=== PATIENT | female | born 1995 | race Caucasian/White ===

== ENCOUNTER 2025-01-23 22:34 | Emergency (ER) | payer BC ==
[~2025-01-23] VITALS: Wt 90.1 kg
[2025-01-23 22:55] LABS: BASO # 0.02 K/mm3 (0.02-0.10); EOS # 0.09 K/mm3 (0.04-0.40); HEMATOCRIT 35.2 % (37.0-47.0); HEMOGLOBIN 11.8 g/dL (12.5-16.0); LYMPH# 1.88 K/mm3 (1.50-4.00); MEAN CELL VOLUME 99 fl (78-100); MEAN CORPUSCULAR HEMOGLOBIN 33 pg (27-31); MEAN CORPUSCULAR HGB CONC 34 g/dL (33-37); MEAN PLATELET VOLUME 10.2 fl (7.4-10.4); MONO # 0.77 K/mm3 (0.20-0.80); NEU # 6.44 K/mm3 (1.40-6.50); PLATELET COUNT 286 K/mm3 (130-400); RED BLOOD COUNT 3.57 M/mm3 (4.10-5.30); RED CELL DISTRIBUTION WIDTH 12.5 % (11.5-14.5); WHITE BLOOD COUNT 9.3 K/mm3 (4.8-10.8)
[2025-01-23 23:00] LABS: ALBUMIN 3.4 g/dL (3.5-5.0)
[2025-01-23 23:01] LABS: CALCIUM 9.5 mg/dL (8.3-10.5)
[2025-01-23 23:03] LABS: TOTAL PROTEIN 7.2 g/dL (6.4-8.3)
[2025-01-23 23:04] LABS: TOTAL BILIRUBIN 0.3 mg/dL (0.2-1.2)
[2025-01-23] MEDS ORDERED: CEPHALEXIN500 M1 PO (23:15)
[2025-01-23] MEDS ORDERED: LEVOTHYROXINE125 MCG PO (23:15)
[2025-01-23] MEDS ORDERED: VITAMIN D3250 MCG PO (23:16)
[2025-01-23 23:37] VITALS: BP 120/75
== END 2025-01-23 23:40 | disposition home or self-care (01) ==
LOC: ED 22:34
PROVIDERS: Family Medicine
DX: O99.513 Diseases of the respiratory system complicating pregnancy, third trimester (principal); J06.9 Acute upper respiratory infection, unspecified; Z3A.38 38 weeks gestation of pregnancy